=== PATIENT | female | born 1960 | race Caucasian/White ===

== ENCOUNTER 2016-09-26 05:59 | Day surgery (SDC) | payer MEDICAID ==
[2016-09-26] VITALS (11 sets, daily range): BP systolic 119–164; BP diastolic 62–72; PULSE 48–60; RESP 16–26; Ht 160 cm; Wt 63.0 kg
[~2016-09-26] VITALS: Ht 160 cm; Wt 63.0 kg
[2016-09-26] MEDS ORDERED: ROCURONIUM 50 MG INJ ONE (07:00)
[2016-09-26] MEDS ORDERED: NEOSTIGMINE 3 MG/3 ML SYRINGE ONE (07:00)
[2016-09-26] MEDS ORDERED: LIDOCAINE 2% (SDV) 5 ML INJ ONE (07:00)
[2016-09-26] MEDS ORDERED: SUCCINYLCHOLINE CHLORIDE 100 MG/5 ML SYG IV ONE (07:00)
[2016-09-26] MEDS ORDERED: GLYCOPYRROLATE 0.4 MG INJ ONE (07:00)
[2016-09-26] MEDS ORDERED: PROPOFOL 200 MG INJ ONE (07:00)
--- NOTE | 2016-09-26 07:50 | RADRPT ---
PROCEDURE: XR Chest. CLINICAL INDICATION: Preop TECHNIQUE: A single AP view of the chest was obtained. COMPARISON: None. FINDINGS: No focal airspace opacification, pleural effusion or pneumothorax is seen. There is small bilateral calcified nodules. The cardiomediastinal silhouette is within normal limits for size. The osseous structures are unremarkable. IMPRESSION: 1. No radiographic evidence of acute cardiopulmonary disease. 2. Small bilateral granulomas. RPTAT: HH .Ivelisse Andres MD, MD Date Time Electronically viewed and signed by .Ivelisse Andres MD, MD on 09/26/2016 07:49 .G/
[2016-09-26 08:05] LABS: BASOPHILS % 0.3 % (0.0-2.0); CONDITION 1; EOSINOPHILS % 0.3 % (0.0-7.0); HEMATOCRIT 42.9 % (37.0-47.0); HEMOGLOBIN 14.5 g/dl (12.0-16.0); LYMPHOCYTES # 1.7 10^3/ul (0.8-2.9); LYMPHOCYTES % 28.8 % (15.0-51.0); MEAN CORPUSCULAR HEMOGLOBIN 31.1 pg (29.0-33.0); MEAN CORPUSCULAR HGB CONC 33.8 g/dl (32.0-37.0); MEAN CORPUSCULAR VOLUME 92.1 fl (82.0-101.0); MONOCYTE # 0.5 10^3/ul (0.3-0.9); MONOCYTES % 8.3 % (0.0-11.0); NEUTROPHIL # 3.7 10^3/ul (1.6-7.5); NEUTROPHILS % 62.3 % (39.0-77.0); PLATELET COUNT 259 10^3/UL (140-440); RED BLOOD COUNT 4.66 10^6/ul (4.20-5.40); RED CELL DISTRIBUTION WIDTH 12.8 % (11.5-14.5)
[2016-09-26 08:11] LABS: CALCIUM 9.5 mg/dl (8.4-10.2); CREATININE 0.62 mg/dl (0.44-1.00); POTASSIUM 4.1 mmol/L (3.5-5.1)
[2016-09-26 08:43] LABS: INR 0.96; PROTIME 12.8 Sec (12.2-14.2)
[2016-09-26 08:44] LABS: PARTIAL THROMBOPLASTIN TIME 26.4 Sec (25.0-35.0)
[2016-09-26] MEDS ORDERED: SOD CHLORIDE 0.9% 1,000 ML IV SCH (10:00)
[2016-09-26] MEDS ORDERED: CEFAZOLIN 2 GM/50 ML (PMX) 50 ML IVPB ONE (10:00)
[2016-09-26] MEDS ORDERED: ISOSULFAN BLUE 1% 5 ML INJ SC ONE (11:04)
[2016-09-26] MEDS ORDERED: FENTAnyl 50 MCG/ML VIAL ONE (12:18)
--- NOTE | 2016-09-26 14:51 | OPR ---
DATE OF OPERATION: 09/26/2016 PREOPERATIVE DIAGNOSES: Invasive cancer, right breast. POSTOPERATIVE DIAGNOSIS: Invasive cancer, right breast. OPERATION PERFORMED: Right needle-directed partial mastectomy and sentinel lymph node biopsy. ANESTHESIA: General anesthesia. ANESTHESIOLOGIST: Darnell Whitley MD SURGEON: Cam Malik MD PHOTOGRAPHIC LABORATORY SUPERVISOR: Jay Jay Levine MD INDICATIONS FOR PROCEDURE: The patient is a 56-year-old female who underwent screening mammography and was found to have a suspicious lesion in her right breast. Subsequent biopsy revealed a moderat rosa differentiated cancer. The patient was counseled on the risks versus benefits of surgery. She consented and was scheduled for surgery. DESCRIPTION OF PROCEDURE: On the morning of surgery, the patient was brought to [facility] where she underwent localization of the lesion performed by attending radiolog ist, Dr. Rocío Gaona. Subsequently, she was brought to the operating theater, placed under gene ral anesthesia. The right breast and axillary regions were prepped and draped in usual sterile fash ion. Approximately 4 mL of 1% Lymphazurin blue dye were injected peritumorally. The breast was gen tly massaged for approximately 12 minutes. At this point, a 2 to 3 cm incision was made in the righ t axillary hairline. Subcutaneous tissue was dissected with cautery down through the clavipectoral fascia. A dye-stained lymphatic was identified. It was traced to an obvious sentinel node. There was an additional node slightly beyond this, which also contained some dye. Both of these lymph nod es were resected, sent for intraoperative analysis, which was negative for metastatic disease. Ther efore, the wound was irrigated, minimal bleeding was controlled with cautery, and the skin was reapp roximated with 4-0 Vicryl sutures in subcuticular fashion. Attention was then directed to performin g the partial mastectomy. The previously placed localization wire was approximately the 1 o'clock l ocation approximately 3 cm from the nipple-areolar border. A curvilinear incision was made in this area. Subcutaneous tissue was dissected with cautery. Skin edges were then elevated with skin hook s and wide circumferential dissection of the tissue associated with the wire took place, taking grea t care to ensure adequate margin. Specimen was elevated, transected, oriented, and sent for radiogr aphic confirmation of capture. Capture was confirmed. Specimen was then sent for permanent patholo gic analysis. The wound was irrigated. Minimal bleeding was controlled with cautery, and the skin was reapproximated with 4-0 Vicryl suture in subcuticular fashion. Benzoin and Steri-Strips were th en applied. The patient tolerated procedure well. Estimated blood loss was 20 mL. There were no c omplications. The patient was transported in stable condition to the recovery room where circumfere ntial compression dressing was applied. Dictated By: CAM HOOKER/NORMA Conf#: [id number] DID#: [id number]
== END 2016-09-26 16:40 | disposition home or self-care (01) ==
LOC: SDS 05:59
PROVIDERS: ATTEND Surgery Surgical Oncology
DX: C50.911 Malignant neoplasm of unspecified site of right female breast (principal)
CPT/HCPCS: 19301; 38500; 38792; 71010; 80048; 85025; 85610; 85730; 88307; 88331; J0330; J2710; J3010; Z7512; Z7610; Q9968